=== PATIENT | male | born 1980 | race Caucasian/White ===

== ENCOUNTER 2021-02-19 02:43 | Emergency (ER) | payer BC ==
[~2021-02-19] VITALS: Ht 180.3 cm; Wt 84.4 kg
--- NOTE | ~2021-02-19 | EMS ---
[facility] [address] [place] [address] EMS Patient Care Report Name: SIMONE ROGERS Room #: DEP MARK Jay#: [id number] Admission: 02/19/21 Attend Phys: Discharge: 02/19/21 Date of : 82 Report #: [id number] THIS REPORT FOR: //name// Report Transmitted: 02/20/2021 15:16 EMS Care Summary [place], [place]/[facility] Incident [id number] @ 02/19/2021 02:09 Incident Location [address] [place] [id number] Patient SIMONE ROGERS Male, 40 Years 1980 Patient Address [address] [place] [id number] Patient History Bronchitis Chronic,Depression,Anxiety, Patient Allergies No known allergies, Patient Medications Valium, Chief Complaint BACK PAIN Disposition Transported No Lights/Ryde Dispatch Reason Back Pain (Non-Traumatic) Transported To [facility] Narrative M42 WAS DISPATHED FOR A BACK PAIN. UPON ARRIVAL THE PT WAS WALKING OUT OF THE FACILITY. THE PT INFORMED EMS HE COULD WALK TO THE AMBULANCE. ONCE THE PT WAS ISIDE THE AMBULANCE HE EXPLAINED THAT HE SUFFERED FROM CHRONIC BACK PAIN AND [facility] [address] [place] [address] EMS Patient Care Report Name: SIMONE ROGERS Room #: DEP ER Pierre#: [id number] Admission: 02/19/21 Attend Phys: Discharge: 02/19/21 Date of : 82 Report #: [id number] THAT TODAY IT FLARED UP BADLY ENOUGH THAT HE WAS HAVING TROUBE SLEEPING. THE PT DENIED RECENT TRAUMA AND HAD NO OTHER COMPLAINTS. THE PT WAS TRASPORTED TO THE HOSPITAL AND MONITORED ENROUTE. THE PT WAS TRANSFERRED TO HOSPITAL STAFF WITH A REPORT. EMS RETURNED TO SERVICE. Initial Vitals @02:28P: 104,R: 14,BP: 154/97,Pain: 4/10,GCS: 15,SpO2: 95,Revised Trauma: 12, @02:36P: 98,R: 16,BP: 131/93,Pain: 4/10,GCS: 15,CO: 3,SpO2: 99,Revised Trauma: 12, Assessments @:26MENTAL:Time Oriented,Event Oriented,Place Oriented,Person Oriented,SKIN:HEENT:Head/Face: No Abnormalities,Eyes: No Abnormalities,Neck/Airway: No Abnormalities,LUNG SOUNDS:General: No Abnormalities,Left Upper: No Abnormalities,Right Upper: No Abnormalities,Left Lower: No Abnormalities,Right Lower: No Abnormalities,ABDOMEN:General: No Abnormalities,Left Upper: No Abnormalities,Right Upper: No Abnormalities,Left Lower: No Abnormalities,Right Lower: No Abnormalities,PELVIS//GI:No Abnormalities,EXTREMITIES:Left Arm: No Abnormalities,Right Arm: No Abnormalities,Left Leg: No Abnormalities,Right Leg: No Abnormalities,PULSE:Radial: 2+ Normal,NEURO:No Abnormalities, Impression Back Pain Procedures @02:26 ALS Assessment Response: UnchangedSucceeded Timeline 02:07,Call Received 02:07,Dispatch Notified 02:09,Dispatched 02:10,En Route 02:25,On Scene 02:26,At Patient 02:26,ALS Assessment,Response: UnchangedSucceeded, 02:28,BP: 154/97 M,PULSE: 104,RR: 14 R,SPO2: 95 Ox,ETCO2: ,BG: ,PAIN: 4,GCS: 15, 02:30,Depart Scene 02:36,BP: 131/93 M,PULSE: 98,RR: 16 R,SPO2: 99 Ox,ETCO2: ,BG: ,PAIN: 4,GCS: 15, 02:40,At Destination 02:55,Call Closed Disclaimer v1.1 Copyright 2020 [employer], [address] [address] EMS Patient Care Report Name: SIMONE ROGERS [id number] Admission: 02/19/21 Attend Phys: Discharge: 02/19/21 Date of : 82 Report #: [id number] This EMS Care Summary contains data elements from the applicable legal record (which may be displayed differently). It is designed to provide pertinent information for the following purposes: continuity of care, clinical quality, and state data reporting. The complete legal record is available to ED staff and administrators of the receiving hospital in [employer]s Patient Tracker. All data is provided "as is."
[2021-02-19 02:49] VITALS: BP 138/93
[2021-02-19] MEDS ORDERED: METHOCARBAMOL750 MG PO (02:56)
[2021-02-19] MEDS ORDERED: CLONIDINE HCL0.1 M1 PO (02:56)
[2021-02-19] MEDS ORDERED: HYDROXYZINE PAM25 M1 PO (02:57)
[2021-02-19] MEDS ORDERED: PROMETHAZINE HC25 M1 PO (02:57)
[2021-02-19] MEDS ORDERED: DICYCLOMINE HCL20 MG PO (02:57)
[2021-02-19] MEDS ORDERED: DESYREL150 MG PO (02:58)
== END 2021-02-19 03:35 | disposition home or self-care (01) ==
LOC: ER 02:43
DX: G89.29 Other chronic pain (principal); M54.89 Other dorsalgia; F11.10 Opioid abuse, uncomplicated; Z79.899 Other long term (current) drug therapy; Z79.891 Long term (current) use of opiate analgesic